=== PATIENT | female | born 1990 | race Caucasian/White ===

== ENCOUNTER 2016-06-29 23:04 | Emergency (ER) | payer OTHER ==
--- NOTE | 2016-06-29 23:16 | PDOC ---
History of Present Illness - General History Source: Patient Exam Limitations: No Limitations - History of Present Illness Initial Comments: 06/29/16 23:40 The patient is a 24 year old female, with no significant past medical history, who presents to the emergency department complaining of body aches, fever, sore throat, and ear pain for several days.The patient reports her body aches are diffuse. The patient reports difficulty swallowing. The patients TMax in the ED was 100.1F. The patient denies any associated cough, headache, or dizziness.The patient denies any nausea, vomiting, diarrhea, constipation, or changes in urination patterns. She denies any changes in appetite. The patient does not report any recent travel or sick contacts. Allergies: None reported. Past Surgical History: None reported. Social History: Non-smoker. Denies alcohol or drug use. <Stephanie Martines - Last Filed: 06/29/16 23:40> <Campos Huerta - Last Filed: 06/30/16 00:30> - General Stated Complaint: COLD SYMPTOMS Past History <Stephanie Martines - Last Filed: 06/29/16 23:40> - Past Medical History Asthma: No Cancer: No Cardiac Disorders: No Diabetes: No HTN: No Seizures: No Thyroid Disease: No - Immunization History Immunization Up to Date: Yes - Psycho/Social/Smoking Cessation Hx Anxiety: No Suicidal Ideation: No Smoking History: Never smoked Have you smoked in the past 12 months: No Hx Alcohol Use: No Drug/Substance Use Hx: No Substance Use Type: None Hx Substance Use Treatment: No <Campos Huerta - Last Filed: 06/30/16 00:30> - Past Medical History Allergies/Adverse Reactions: Allergies Allergy/AdvReac Type Severity Reaction Status Date / Time No Known Allergies Allergy Verified 06/29/16 23:19 Home Medications: Ambulatory Orders Acetaminophen [Tylenol -] 650 mg PO Q4H PRN #100 tablet 06/30/16 Review of Systems - Review of Systems Able to Perform ROS?: Yes Comments:: 06/29/16 23:40 GENERAL/CONSTITUTIONAL: +Fever, +body aches. No chills. No weakness. HEAD, EYES, EARS, NOSE AND THROAT: +Sore throat, +ear pain. No change in vision. No ear discharge. CARDIOVASCULAR: No chest pain or shortness of breath. RESPIRATORY: No cough, wheezing, or hemoptysis. GASTROINTESTINAL: No nausea, vomiting, diarrhea or constipation. GENITOURINARY: No dysuria, frequency, or change in urination. MUSCULOSKELETAL: No joint or muscle swelling or pain. No neck or back pain. SKIN: No rash NEUROLOGIC: No headache, vertigo, loss of consciousness, or change in strength/ sensation. ENDOCRINE: No increased thirst. No abnormal weight change. HEMATOLOGIC/LYMPHATIC: No anemia, easy bleeding, or history of blood clots. ALLERGIC/IMMUNOLOGIC: No hives or skin allergy. <Stephanie Martines - Last Filed: 06/29/16 23:40> *Physical Exam - Vital Signs Last Vital Signs Temp Pulse Resp BP Pulse Ox 100.1 F H 113 H 20 107/71 98 06/29/16 23:20 06/29/16 23:20 06/29/16 23:20 06/29/16 23:20 06/29/16 23:20 - Physical Exam Comments: 06/29/16 23:41 GENERAL: Awake, alert, and fully oriented, in no acute distress HEAD: No signs of trauma EYES: PERRLA, EOMI, sclera anicteric, conjunctiva clear ENT: Bilateral serous otitis. No meningismus. Hearing grossly normal, nares patent. Moist mucosa NECK: Normal ROM, supple, no lymphadenopathy, JVD, or masses LUNGS: Breath sounds equal, clear to auscultation bilaterally. No wheezes, and no crackles HEART: Regular rate and rhythm, normal S1 and S2, no murmurs, rubs or gallops ABDOMEN: Soft, nontender, normoactive bowel sounds. No guarding, no rebound. No masses EXTREMITIES: Normal range of motion, no edema. No clubbing or cyanosis. No cords, erythema, or tenderness NEUROLOGICAL: Cranial nerves II through XII grossly intact. Normal speech, normal gait SKIN: Warm, Dry, normal turgor, no rashes or lesions noted. <Stephanie Martines - Last Filed: 06/29/16 23:40> ED Treatment Course - Medications Given in the ED: ED Medications Discontinued Medications Generic Name Dose Route Start Last Admin Trade Name Freq PRN Reason Stop Dose Admin Acetaminophen 650 mg 06/29/16 23:27 06/29/16 23:33 Tylenol - PO 06/29/16 23:28 650 mg ONCE ONE Administration <Stephanie Martines - Last Filed: 06/29/16 23:40> *DC/Admit/Observation/Transfer - Attestations Scribe Attestion: 06/29/16 23:41 Documentation prepared by Stephanie Martines, acting as medical pathology teacher for Campos Huerta MD. <Stephanie Martines - Last Filed: 06/29/16 23:40> - Discharge Dispostion Admit: No <Campos Huerta - Last Filed: 06/30/16 00:30> Diagnosis at time of Disposition: Acute streptococcal pharyngitis - Discharge Dispostion Disposition: HOME Condition at time of disposition: Stable - Prescriptions Prescriptions: Acetaminophen [Tylenol -] 650 mg PO Q4H PRN #100 tablet PRN Reason: Pain - Patient Instructions Printed Discharge Instructions: DI for Strep Throat
[2016-06-29 23:22] VITALS: BP 107/71; PULSE 113; TEMP 100.1; BMI 27.4
[2016-06-29] MEDS ORDERED: ACETAMINOPHEN 325 MG TABLET (FP) PO ONE (23:27)
[2016-06-29] MEDS ORDERED: ACETAMINOPHEN 325 MG TABLET (FP) ONE (23:30)
[2016-06-30 00:10] LABS: URINE APPEARANCE CLEAR; URINE BILIRUBIN NEGATIVE (NEGATIVE); URINE COLOR LTYELLOW; URINE GLUCOSE (UA) NEGATIVE (NEGATIVE); URINE KETONE NEGATIVE (NEGATIVE); URINE NITRITE NEGATIVE (NEGATIVE); URINE PROTEIN NEGATIVE (NEGATIVE); URINE UROBILINOGEN NEGATIVE E.U./dl (0.2-1.0)
[2016-06-30 00:24] LABS: URINE BLOOD 1+ (NEGATIVE); URINE LEUK ESTERASE TRACE (NEGATIVE)
[2016-06-30] MEDS ORDERED: PENICILLIN G BENZATHINE 1,200,000 UNIT/2 ML PFS IM ONE (00:27)
[2016-06-30 00:34] LABS: URINE BACTERIA RARE /hpf (NONE SEEN); URINE RBC 1 /hpf (0-3); URINE WBC 6 /hpf (3-5)
[2016-06-30] MEDS ORDERED: PENICILLIN G BENZATHINE 2,400,000 UNIT/4 ML PFS ONE (00:37)
== END 2016-06-30 00:49 | disposition home or self-care (01) ==
LOC: JER 23:04
DX: J02.0 Streptococcal pharyngitis (principal); B95.0 Streptococcus, group A, as the cause of diseases classified elsewhere; H65.03 Acute serous otitis media, bilateral
CPT/HCPCS: 81003; 81015; 84703; 87070; 87430; 96372; 99281-25

== ENCOUNTER 2018-02-07 14:35 | Emergency (ER) | payer OTHER ==
[2018-02-07 14:40] VITALS: BP 108/71; PULSE 76; TEMP 98.7; BMI 24.2
[2018-02-07] MEDS ORDERED: TETANUS AND DIPHTHERIA TOXOID 0.5 ML DISP.SYRIN IM ONE (15:06)
[2018-02-07] MEDS ORDERED: ERYTHROMYCIN 0.5% OPHTHALMIC OINTMENT 3.5 GM TUBE OS ONE (15:06)
[2018-02-07] MEDS ORDERED: IBUPROFEN 600 MG TABLET (FP) PO ONE ×2 (15:07→15:23)
[2018-02-07] MEDS ORDERED: FLUORESCEIN NA 1 EA STRIP ONE (15:08)
--- NOTE | 2018-02-07 15:19 | PDOC ---
History of Present Illness - General Chief Complaint: Eye Problem Stated Complaint: EYE PROBLEM Time Seen by Provider: 02/07/18 14:47 History Source: Patient Exam Limitations: No Limitations - History of Present Illness Initial Comments: 02/07/18 15:13 27 yr female with c/o laceration inside the lower eyelid after a piece of metal hook on her bedframe accidentaly hit her eye. no vision changes Severity: mild Past History - Past Medical History Allergies/Adverse Reactions: Allergies Allergy/AdvReac Type Severity Reaction Status Date / Time No Known Allergies Allergy Verified 02/07/18 14:40 Home Medications: Ambulatory Orders Tobramycin 0.3% Ophth Oint [Tobrex Ophthalmic Ointment -] 1 applic OS Q4HWA #1 tube 02/07/18 Asthma: No Cancer: No Cardiac Disorders: No COPD: No Diabetes: No HTN: No Seizures: No Thyroid Disease: No - Immunization History Immunization Up to Date: Yes - Suicide/Smoking/Psychosocial Hx Smoking History: Never smoked Have you smoked in the past 12 months: No Hx Alcohol Use: No Drug/Substance Use Hx: No Substance Use Type: None Hx Substance Use Treatment: No *Physical Exam - Vital Signs Last Vital Signs Temp Pulse Resp BP Pulse Ox 98.7 F 76 18 108/71 99 02/07/18 14:36 02/07/18 14:36 02/07/18 14:36 02/07/18 14:36 02/07/18 14:36 - Physical Exam General Appearance: Yes: Nourished, Appropriately Dressed HEENT: positive: EOMI, DAVY, Other (left lower eyelid inside with superficial macerated laceration no active bleeding ) Procedures - Eye Procedure Alcaine Drops Administered: Yes Eye Irrigated w/ Saline(Silverio Lens): Yes Antibiotic Oinment/Drps Admin: left eye (erythromycin) Progress: 02/07/18 15:15 neg fluoroscein uptake to the cornea Medical Decision Making - Medical Decision Making 02/07/18 15:15 cc: injury to left lower yeleid will irrigate with saline place erythromycin ointment pt tolerated well visual aquity is 20/20 bilateral *DC/Admit/Observation/Transfer Diagnosis at time of Disposition: Laceration of conjunctiva Qualifiers: Encounter type: initial encounter Laterality: left Qualified Code(s): S05.32XA - Ocular laceration without prolapse or loss of intraocular tissue, left eye, initial encounter - Discharge Dispostion Disposition: HOME Condition at time of disposition: Good - Prescriptions Prescriptions: Tobramycin 0.3% Ophth Oint [Tobrex Ophthalmic Ointment -] 1 applic OS Q4HWA #1 tube - Referrals Referrals: Kristofer Brooke MD [Staff Physician] - Rodrigo Marshall [Staff Physician] - - Patient Instructions Additional Instructions: apply the eye ointment as directed take ibuprofen (over the counter ) as directed you can take 600mg every 6hrs wear sunglasses while outside follow with the opthomologist tomorrow or thursday at the latest for follow up call them tomorrow morning to set up a post ER visit return if any worsening symptoms aplicar la [place] para los ojos shazia se indica tome ibuprofeno (sin receta) segn las indicaciones, puede alex 600 mg cada 6 horas usar gafas de radha mientras afuera seguir con el oftalmlogo maana o el roshni a ms tardar para el seguimiento. Llamarlos maana por la maana para programar alex visita de ER posterior regresar si algn empeoramiento de los sntomas - Post Discharge Activity
[2018-02-07] MEDS ORDERED: ERYTHROMYCIN 0.5% OPHTHALMIC OINTMENT 3.5 GM TUBE ONE (15:23)
[2018-02-07] MEDS ORDERED: DIPHTH,PERTUSS(ACELL),TET 0.5 ML DISP.SYRIN IM ONE (15:29)
== END 2018-02-07 15:34 | disposition home or self-care (01) ==
LOC: JERFT 14:35
PROC: 3E0234Z Introduction of Serum, Toxoid and Vaccine into Muscle, Percutaneous Approach (ICD-10-PCS; principal; 2018-02-07)
DX: S05.32XA Ocular laceration without prolapse or loss of intraocular tissue, left eye, initial encounter (principal); W51.XXXA Accidental striking against or bumped into by another person, initial encounter; Y93.89 Activity, other specified; Y92.89 Other specified places as the place of occurrence of the external cause
CPT/HCPCS: 90471; 90715; 96372; 99281-25